=== PATIENT | female | born 1980 | race Hispanic/Latino ===

== ENCOUNTER 2018-01-19 18:04 | Emergency (ER) | payer MEDICAID, OTHER ==
[2018-01-19 18:40] LABS: BASOPHILS % (AUTO) 0.5 % (0.0-5.0); EOSINOPHILS % (AUTO) 0.4 % (0.0-8.0); LYMPHOCYTES % (AUTO) 17.9 % (21.0-51.0); MEAN CORPUSCULAR HEMOGLOBIN 29.8 pg (27.0-33.0); MEAN CORPUSCULAR HGB CONC 34.7 g/dL (32.0-36.0); MONOCYTES % (AUTO) 5.2 % (3.0-13.0); PLATELET COUNT (AUTO) 386 K/uL (130-400); RED BLOOD CELL COUNT(AUTO) 4.65 MIL/uL (4.00-5.50); RED CELL DISTRIBUTION WIDTH 14.6 % (11.0-15.5); WHITE BLOOD COUNT (AUTO) 7.8 K/uL (4.8-10.8)
[2018-01-19 18:48] LABS: CREATININE 0.8 mg/dL (0.5-1.5); POTASSIUM 4.2 mmol/L (3.5-5.1)
[2018-01-19 18:49] LABS: INR 0.91 (0.85-1.15); PROTHROMBIN TIME 9.6 SEC (9.6-11.6)
[2018-01-19 18:56] LABS: ALBUMIN 4.4 g/dL (3.5-5.0); BILIRUBIN,TOTAL 0.1 mg/dL (0.2-1.0); TOTAL PROTEIN, SERUM 7.9 g/dL (6.0-8.3)
== END 2018-01-19 19:55 | disposition home or self-care (01) ==
LOC: EDH 18:04
DX: R07.89 Other chest pain (principal); M19.90 Unspecified osteoarthritis, unspecified site; M79.7 Fibromyalgia; Z98.890 Other specified postprocedural states; Z72.0 Tobacco use
CPT/HCPCS: 36415; 71045; 80053; 82550; 83690; 84484; 85025; 85378; 85610; 85730; 93005

== ENCOUNTER 2018-06-28 13:54 | Inpatient (IN) | payer BC, MEDICAID ==
[~2018-06-28] VITALS: Ht 157.5 cm; Wt 63.8 kg
[2018-06-28 14:41] LABS: BASOPHILS % (AUTO) 0.9 % (0.0-5.0); EOSINOPHILS % (AUTO) 2.8 % (0.0-8.0); HEMATOCRIT 40.9 % (36-48); LYMPHOCYTES % (AUTO) 31.9 % (21.0-51.0); MEAN CORPUSCULAR HEMOGLOBIN 28.8 pg (27.0-33.0); MEAN CORPUSCULAR HGB CONC 33.9 g/dL (32.0-36.0); MEAN CORPUSCULAR VOLUME 85.1 fL (79-99); NEUTROPHILS % (AUTO) 57.4 % (40.0-77.0); PLATELET COUNT (AUTO) 291 K/uL (130-400); RED BLOOD CELL COUNT(AUTO) 4.81 MIL/uL (4.00-5.50); WHITE BLOOD COUNT (AUTO) 7.7 K/uL (4.8-10.8)
[2018-06-28 14:44] LABS: APPEARANCE,URINE HAZY (CLEAR); BILIRUBIN,URINE Negative (NEGATIVE); COLOR,URINE Yellow (YELLOW); GLUCOSE, URINE (UA) Negative (NEGATIVE); KETONES,URINE Negative (NEGATIVE); LEUKOCYTE ESTERASE ,URINE Negative (NEGATIVE); NITRATE,URINE Negative (NEGATIVE); OCCULT BLOOD,URINE Small (NEGATIVE); PROTEIN,URINE Negative (NEGATIVE); UROBILINOGEN,URINE 0.2 mg/dL (0.2-1.0)
[2018-06-28 14:45] LABS: HCG,QUAL RESULT NEGATIVE (NEGATIVE)
[2018-06-28 14:51] LABS: CARBON DIOXIDE 27 mmol/L (21-32); CHLORIDE 105 mmol/L (101-111); CREATININE 0.6 mg/dL (0.5-1.5); GLOMERULAR FILTR. RATE CALC 120 mL/min (>60); GLUCOSE,RANDOM 95 mg/dL (70-105); SODIUM SERUM 140 mmol/L (136-145); UREA NITROGEN, BLOOD 10 mg/dL (7-18)
[2018-06-28 14:52] LABS: AMPHET/METH SCREEN,URINE NEGATIVE (NEGATIVE); BARBITURATE SCREEN, URINE NEGATIVE (NEGATIVE); BENZODIAZEPINES SCREEN,URINE NEGATIVE (NEGATIVE); CANNABINOID SCREEN,URINE NEGATIVE (NEGATIVE); COCAINE SCREEN,URINE NEGATIVE (NEGATIVE); OPIATE SCREEN,URINE NEGATIVE (NEGATIVE); PHENCYCLIDINE SCREEN,URINE NEGATIVE (NEGATIVE)
[2018-06-28 14:57] LABS: ACETAMINOPHEN < 1 mcg/mL (10-30); ALCOHOL, BLOOD < 3 mg/dL (0-10); SALICYLATE < 2.8 mg/dL (2.8-20.0)
[2018-06-28 15:09] LABS: BACTERIA,URINE None Seen /HPF (None Seen); RBC,URINE 0-1 /HPF (0-1); SQUAMOUS EPITHELIAL CELL,UR 30-50 /HPF (0-2); WBC,URINE None Seen /HPF (0-1); YEAST,URINE BUDDING Few /HPF (None Seen)
[2018-06-28 16:24] LABS: ALANINE AMINOTRANSFERASE 20 U/L (12-78); ASPARTATE AMINOTRANSFERASE 17 U/L (10-37); BILIRUBIN,TOTAL 0.1 mg/dL (0.2-1.0); CREATINE KINASE, TOTAL 63 U/L (21-232); TOTAL PROTEIN, SERUM 7.4 g/dL (6.0-8.3)
[2018-06-28 16:35] LABS: BILIRUBIN,DIRECT < 0.1 mg/dL (0.0-0.3)
[2018-06-28] MEDS ORDERED: IOHEXOL-350 75 ML VIAL IV ONE (17:06)
[2018-06-28] MEDS ORDERED: ASPIRIN 325 MG TABLET ONE (17:53)
[2018-06-28] MEDS: SODIUM CHLORIDE 0.9% 1000ML 1,000 ML IV SCH (20:45)
[2018-06-28 21:25] VITALS: BP 107/70
[2018-06-28] MEDS ORDERED: DULO20 PO (22:04)
[2018-06-28] MEDS ORDERED: GABA-529 PO (22:04)
[2018-06-28] MEDS ORDERED: DOXY50CA2 PO (22:04)
[2018-06-28] MEDS ORDERED: KETOROLAC TROMETHAMINE 15MG/ML ONE (23:11)
[2018-06-29] VITALS: BP 107/59
[2018-06-29 03:38] VITALS: BP 98/54
[2018-06-29 05:49] LABS: BASOPHILS % (AUTO) 0.6 % (0.0-5.0); EOSINOPHILS % (AUTO) 3.6 % (0.0-8.0); HEMATOCRIT 40.3 % (36-48); LYMPHOCYTES % (AUTO) 32.6 % (21.0-51.0); MEAN CORPUSCULAR HEMOGLOBIN 27.6 pg (27.0-33.0); MEAN CORPUSCULAR HGB CONC 32.2 g/dL (32.0-36.0); MEAN CORPUSCULAR VOLUME 85.8 fL (79-99); NEUTROPHILS % (AUTO) 54.2 % (40.0-77.0); NUCLEATED RED BLOOD CELLS 0.1 % (0.0-0.19); PLATELET COUNT (AUTO) 247 K/uL (130-400); RED CELL DISTRIBUTION WIDTH 14.7 % (11.0-15.5); WHITE BLOOD COUNT (AUTO) 7.3 K/uL (4.8-10.8)
[2018-06-29 06:01] LABS: INR 0.95 (0.85-1.15); PARTIAL THROMBOPLASTIN TIME 28.8 SEC (26.3-35.5)
[2018-06-29 06:07] LABS: HEMOGLOBIN A1C 5.6 % (4.0-6.0)
[2018-06-29 06:18] LABS: ALBUMIN 3.5 g/dL (3.5-5.0); BILIRUBIN,TOTAL 0.3 mg/dL (0.2-1.0); CREATININE 0.6 mg/dL (0.5-1.5); POTASSIUM 3.6 mmol/L (3.5-5.1); TOTAL PROTEIN, SERUM 6.4 g/dL (6.0-8.3)
[2018-06-29] MEDS: SODIUM CHLORIDE 0.9% 1000ML 1,000 ML IV SCH ×3 (06:26→20:51)
[2018-06-29 08:00] VITALS: BP 97/55
[2018-06-29] MEDS ORDERED: GADOBENATE DIMEGLUMINE 10 ML IV ONE (08:02)
[2018-06-29] MEDS: ASPIRIN 325MG EC TAB 325 MG TABLET.DR PO SCH (09:00)
[2018-06-29] MEDS: ENOXAPARIN SODIUM 40 MG/0.4 ML SYRINGE SQ SCH (09:01)
[2018-06-29] MEDS: FAMOTIDINE/PF 20 MG/2 ML VIAL IV SCH ×2 (09:01→20:50)
[2018-06-29] MEDS: KETOROLAC TROMETHAMINE 15MG/ML IV PRN ×2 (09:01→20:50)
[2018-06-29 11:00] VITALS: BP 112/71
[2018-06-29 16:00] VITALS: BP 96/60
[2018-06-29 20:00] VITALS: BP 104/68
[2018-06-29] MEDS: GABAPENTIN 100 MG CAPSULE PO SCH (20:51)
[2018-06-30] VITALS: BP 128/65
[2018-06-30] MEDS: SODIUM CHLORIDE 0.9% 1000ML 1,000 ML IV SCH (02:07)
[2018-06-30 04:08] VITALS: BP 110/65
[2018-06-30 04:59] LABS: BASOPHILS % (AUTO) 0.6 % (0.0-5.0); EOSINOPHILS % (AUTO) 3.8 % (0.0-8.0); HEMATOCRIT 35.5 % (36-48); LYMPHOCYTES % (AUTO) 41.6 % (21.0-51.0); MEAN CORPUSCULAR HEMOGLOBIN 28.8 pg (27.0-33.0); MEAN CORPUSCULAR HGB CONC 33.6 g/dL (32.0-36.0); MEAN CORPUSCULAR VOLUME 85.8 fL (79-99); PLATELET COUNT (AUTO) 255 K/uL (130-400); RED BLOOD CELL COUNT(AUTO) 4.14 MIL/uL (4.00-5.50); WHITE BLOOD COUNT (AUTO) 5.8 K/uL (4.8-10.8)
[2018-06-30 05:07] LABS: CREATININE 0.6 mg/dL (0.5-1.5); POTASSIUM 3.9 mmol/L (3.5-5.1)
[2018-06-30 07:30] VITALS: BP 120/71
[2018-06-30] MEDS: ASPIRIN 325MG EC TAB 325 MG TABLET.DR PO SCH (08:40)
[2018-06-30] MEDS: DULOXETINE HCL 20 MG PO SCH (08:41)
[2018-06-30] MEDS: FAMOTIDINE/PF 20 MG/2 ML VIAL IV SCH ×2 (08:41→19:46)
[2018-06-30] MEDS: ENOXAPARIN SODIUM 40 MG/0.4 ML SYRINGE SQ SCH ×2 (08:42→08:56)
[2018-06-30 11:35] VITALS: BP 101/59
[2018-06-30 15:30] VITALS: BP 110/66
[2018-06-30] MEDS: GABAPENTIN 100 MG CAPSULE PO SCH (19:46)
[2018-06-30 20:00] VITALS: BP 108/62
[2018-06-30] MEDS: KETOROLAC TROMETHAMINE 15MG/ML IV PRN (22:32)
[2018-07-01] VITALS: BP 107/64
[2018-07-01 04:00] VITALS: BP 119/64
[2018-07-01 04:32] LABS: BASOPHILS % (AUTO) 0.5 % (0.0-5.0); EOSINOPHILS % (AUTO) 3.7 % (0.0-8.0); HEMATOCRIT 36.6 % (36-48); LYMPHOCYTES % (AUTO) 42.8 % (21.0-51.0); MEAN CORPUSCULAR HEMOGLOBIN 28.1 pg (27.0-33.0); MEAN CORPUSCULAR HGB CONC 32.8 g/dL (32.0-36.0); MEAN CORPUSCULAR VOLUME 85.8 fL (79-99); MONOCYTES % (AUTO) 7.4 % (3.0-13.0); NEUTROPHILS % (AUTO) 45.6 % (40.0-77.0); NUCLEATED RED BLOOD CELLS 0.1 % (0.0-0.19); PLATELET COUNT (AUTO) 240 K/uL (130-400); RED BLOOD CELL COUNT(AUTO) 4.26 MIL/uL (4.00-5.50); RED CELL DISTRIBUTION WIDTH 14.7 % (11.0-15.5); WHITE BLOOD COUNT (AUTO) 6.6 K/uL (4.8-10.8)
[2018-07-01 04:43] LABS: CREATININE 0.7 mg/dL (0.5-1.5); POTASSIUM 3.7 mmol/L (3.5-5.1)
[2018-07-01 08:00] VITALS: BP 107/71
[2018-07-01] MEDS: ASPIRIN 325MG EC TAB 325 MG TABLET.DR PO SCH (08:50)
[2018-07-01] MEDS: DULOXETINE HCL 20 MG PO SCH (08:52)
[2018-07-01] MEDS: ENOXAPARIN SODIUM 40 MG/0.4 ML SYRINGE SQ SCH (08:52)
[2018-07-01] MEDS: FAMOTIDINE/PF 20 MG/2 ML VIAL IV SCH (08:57)
[2018-07-01 11:36] VITALS: BP 105/71
[2018-07-01 15:50] VITALS: BP 101/63
== END 2018-07-01 18:35 | disposition home or self-care (01) | DRG 71 ==
LOC: EDH 13:54 → EDHIP 20:20 → 3CH 20:45
PROVIDERS: ADMIT Hospitalist; ATTEND Hospitalist
DX: G93.40 Encephalopathy, unspecified (principal); R47.01 Aphasia; F32.9 Major depressive disorder, single episode, unspecified; F44.9 Dissociative and conversion disorder, unspecified; F45.9 Somatoform disorder, unspecified; R29.707 NIHSS score 7; F41.9 Anxiety disorder, unspecified; Z83.3 Family history of diabetes mellitus; Z81.8 Family history of other mental and behavioral disorders; Z84.89 Family history of other specified conditions; Z82.5 Family history of asthma and other chronic lower respiratory diseases; Z87.891 Personal history of nicotine dependence; Z88.8 Allergy status to other drugs, medicaments and biological substances; Z91.013 Allergy to seafood; Z28.21 Immunization not carried out because of patient refusal
CPT/HCPCS: 36415; 70450; 70496; 70498; 70553; 80048; 80053; 80061; 80076; 80305; 81001; 81025; 82550; 83036; 83874; 84484; 84702; 85025; 85610; 85730; 92507; 92522; 92610; 93005; A9577; G0480; G0481; J1650; J1885; J3490; J7030; Q9967